=== PATIENT | female | born 2000 | race Two or more races ===

== ENCOUNTER 2022-06-02 14:45 | Inpatient (IN) | payer MEDICAID, OTHER ==
[~2022-06-02] VITALS: Ht 170.2 cm; Wt 64.4 kg
[2022-06-02] MEDS ORDERED: PROMETHAZINE HCL 25 MG/ML 1ML IV PRN (18:30)
[2022-06-02] MEDS ORDERED: LACTATED RINGER'S 1,000 ML IV SCH (18:30)
[2022-06-02] MEDS ORDERED: BUTORPHANOL TARTRATE 2 MG/1 ML VIAL IV PRN ×2 (18:30)
[2022-06-02] MEDS ORDERED: LIDOCAINE 2%HCL (LOCAL ANESTH.) INJ 10ml MDV IJ PRN (18:30)
[2022-06-02] MEDS ORDERED: WITCH HAZEL-GLYCERIN PAD TOP PRN (18:30)
[2022-06-02] MEDS ORDERED: DERMOPLAST 60ML BOTTLE TOP PRN (18:30)
[2022-06-02] MEDS ORDERED: PENICILLIN G POT 5MIL/D5 50ML 50 ML IV ONE (18:30)
[2022-06-02] MEDS ORDERED: PHISODERM TOP SOLN 240ML BTL TOP PRN (18:30)
[2022-06-02] MEDS ORDERED: LACT. RINGERS/OXYTOCIN 20UNITS 500 ML IV ONE ×2 (18:30→19:00)
[2022-06-02 19:20] LABS: Basophils # (auto) 0 10 ^3/uL (0-0.2); Basophils % (auto) 0.5 % (0.0-2.0); Eosinophils # (auto) 0.1 10 ^3/uL (0-0.8); Eosinophils % (auto) 0.9 % (0.0-7.0); Hematocrit 34.1 % (36.0-46.0); Hemoglobin 11.7 g/dL (12.2-16.2); Lymphocytes # (auto) 1.6 10 ^3/uL (0.4-5.4); Lymphocytes % (auto) 22.6 % (10.0-50.0); Mean Corpuscular Hgb Conc. 34.4 g/dL (32.0-36.0); Mean Corpuscular Volume 87.2 fL (80.0-100.0); Monocytes # (auto) 0.6 10 ^3/uL (0-1.3); Monocytes % (auto) 8.9 % (0.0-12.0); Neutrophils # (auto) 4.7 10 ^3/uL (1.6-8.6); Neutrophils % (auto) 67.1 % (37.0-80.0); Nucleated Red Blood Cells % 0.1 %; Red Blood Cells 3.91 10^6/uL (4.0-5.20); Red Cell Distribution Width 13.8 % (11.8-14.3); White Blood Cell 7.1 10^3/uL (4.4-10.8)
[2022-06-02 19:41] LABS: INR 0.86 (0.9-1.15); Partial Thromboplastin Time 24.7 sec (24.6-33.4)
[2022-06-02 19:54] LABS: Albumin 2.5 g/dL (3.4-5.0); BUN/Creatinine Ratio 9.4; Bilirubin, Total 0.5 mg/dL (0.2-1.0); Calcium 8.8 mg/dL (8.5-10.1); Potassium 4.2 mmol/L (3.5-5.1); Total Protein 6.4 g/dL (6.4-8.2)
[2022-06-02] MEDS ORDERED: SODIUM CHLORIDE 0.9% 500 ML IV PRN (20:00)
[2022-06-02] MEDS ORDERED: ROPIVACAINE HCL 200 ML EPI SCH ×2 (20:00→20:15)
[2022-06-02] MEDS ORDERED: LIDOCAINE HCL 2 %PF INJ 10ML AMP IJ ONE (20:00)
[2022-06-02] MEDS ORDERED: fentaNYL 400mCg/200ml W ROPIVA 200 ML EPI SCH (20:00)
[2022-06-02] MEDS ORDERED: fentaNYL CITRATE 100 MCG/2 ML VL IV ONE (20:00)
[2022-06-02] MEDS ORDERED: LACTATED RINGER'S 500 ML IV ONE (20:00)
[2022-06-02] MEDS ORDERED: ePHEDrine SULFATE 50 MG/ML AMP IV ONE ×2 (20:00→20:15)
[2022-06-02] MEDS ORDERED: LIDOCAINE 2%HCL (LOCAL ANESTH.) INJ 10ml MDV IJ ONE (20:00)
[2022-06-02] MEDS ORDERED: LIDOCAINE 1%-Mpf/Epinephrine 1:200,000 IJ ONE (20:00)
[2022-06-02] MEDS ORDERED: NALOXONE HCL 0.4 MG/ML VIAL IV ONE ×2 (20:00→20:15)
[2022-06-02] MEDS ORDERED: LACTATED RINGER'S 1,000 ML IV ONE (20:00)
[2022-06-02 20:31] LABS: Urine Bacteria NONE SEEN /hpf (None Seen); Urine Blood Negative /uL (Negative); Urine Hyaline Cast FEW /lpf (0 - 2); Urine Specific Gravity 1.008 (1.001-1.035); Urine WBC <1 /hpf (0 - 5)
[2022-06-02 20:56] LABS: Amphetamine Screen, Urine NEGATIVE (NEGATIVE); Barbiturate Scree,Urine NEGATIVE (NEGATIVE); Benzodiazephine Screen, Urine NEGATIVE (NEGATIVE); Cannabinoid Screen, Urine NEGATIVE (NEGATIVE); Cocaine Screen, Urine NEGATIVE (NEGATIVE); Opiate Scree,Urine NEGATIVE (NEGATIVE); Phencyclidine Screen, Urine NEGATIVE (NEGATIVE)
[2022-06-02] MEDS ORDERED: PENICILLIN G POTASSIUM 2,500,000 UNITS in D5W 5% 50 ML IV SCH (23:00)
[2022-06-03] MEDS ORDERED: ACETAMINOPHEN 325 MG TAB PO PRN (01:45)
[2022-06-03] MEDS ORDERED: DOCUSATE SOD 100 MG CAP PO PRN (01:45)
[2022-06-03] MEDS ORDERED: ONDANSETRON ODT 4 MG TAB PO PRN (01:45)
[2022-06-03 03:00] VITALS: BP 144/85
[2022-06-03] MEDS: IBUPROFEN 800 MG TAB PO SCH ×2 (06:46→18:00)
[2022-06-03 07:00] VITALS: BP 127/77
[2022-06-03 11:00] VITALS: BP 131/75
[2022-06-03 15:00] VITALS: BP 129/78
[2022-06-03 19:15] VITALS: BP 118/66
[2022-06-03 23:00] VITALS: BP 122/70
[2022-06-04 03:00] VITALS: BP 123/76
[2022-06-04] MEDS: IBUPROFEN 800 MG TAB PO SCH ×2 (05:45)
[2022-06-04 06:25] VITALS: BP 123/79
[2022-06-04 06:30] VITALS: BP 123/79
[2022-06-04] MEDS ORDERED: TETANUS-DIPTH-ACEL PERTUSSIS 0.5ML SYR Tdap IM ONE (08:00)
[2022-06-04] MEDS ORDERED: INFLUENZA QUAD 2022-2023 0.5 ML SYRG IM ONE (08:00)
[2022-06-04 08:06] LABS: RPR Non Reactive (Non Reactive)
[2022-06-04 11:38] VITALS: BP 120/83
[2022-06-04 11:58] VITALS: BP 120/83
== END 2022-06-04 12:00 | disposition home or self-care (01) | DRG 560 ==
LOC: UNDOADMOB 14:45 → LDRP 14:45 → OBSVTOIN 18:14 → LDRP 20:35
PROVIDERS: ADMIT Obstetrics & Gynecology Obstetrics; ATTEND Obstetrics & Gynecology Obstetrics
PROC: 10E0XZZ Delivery of Products of Conception, External Approach (ICD-10-PCS; principal; 2022-06-02)
PROC: 0HQ9XZZ Repair Perineum Skin, External Approach (ICD-10-PCS; 2022-06-02)
PROC: 3E0R3BZ Introduction of Anesthetic Agent into Spinal Canal, Percutaneous Approach (ICD-10-PCS; 2022-06-02)
PROC: 00HU33Z Insertion of Infusion Device into Spinal Canal, Percutaneous Approach (ICD-10-PCS; 2022-06-02)
DX: O69.81X0 Labor and delivery complicated by cord around neck, without compression, not applicable or unspecified (principal); Z37.0 Single live birth; O70.0 First degree perineal laceration during delivery; Z20.822 Contact with and (suspected) exposure to COVID-19; Z3A.40 40 weeks gestation of pregnancy
CPT/HCPCS: 36415; 59025; 59414; 62282; 76818; 80053; 80307; 81001; 81002; 85025; 85610; 85730; 86592; 86703; 86762; 86850; 86900; 86901; 87340; 87426; 90686; 90715; 94760; 94762; 96360; 96361; 96365; G0378; J2540; J2590; J7060